=== PATIENT | female | born 1995 | race Caucasian/White ===

== ENCOUNTER 2018-11-18 21:28 | Emergency (ER) | payer OTHER, SELFPAY ==
[2018-11-18 21:35] VITALS: BP 128/84; PULSE 84; RESP 18; TEMP 36.5; O2SAT 99; BMI 27.4
--- NOTE | 2018-11-18 22:02 | ED_ITS ---
HPI - Female Genitourinary General Chief complaint: Urogenital-Female Stated complaint: LEFT SIDED KIDNEY PAIN Time Seen by Provider: 11/18/18 21:29 Source: patient Mode of arrival: ambulatory Limitations: no limitations History of Present Illness HPI Narrative: 21-year-old female nonsmoker, otherwise healthy presents with a chief complaint 2 days of symptoms which started yesterday with dysuria, frequency and urgency. She denies any fever or shaking chills nor nausea or vomiting. She took some azo and cranberry juice in thinks that his many of her urinary symptoms have improved but today she started having left-sided back and flank pain. Her last menstrual period was about 10 days ago, she denies any chance of being . MD Complaint: dysuria Related Data Home Medications Medication Instructions Recorded Confirmed [SHANT] #0 05/31/16 [aczone] #0 06/10/16 adapalene-benzoyl peroxide [Epiduo] 1 brayan TOPICAL #0 05/10/17 Previous Rx's Medication Instructions Recorded cephalexin [Keflex] 500 mg PO QID 7 Days #28 cap 11/18/18 Allergies Allergy/AdvReac Type Severity Reaction Status Date / Time No Known Drug Allergies Allergy Verified 11/18/18 22:43 Review of Systems Constitutional Denies chills, Denies fever(s), Denies lethargy and Denies weakness Eyes Denies change in vision, Denies eye discharge, Denies irritation and Denies loss of vision ENT Ears, Nose, Mouth, and Throat: Denies change in voice, Denies neck pain and Denies sore throat Cardiovascular Denies chest pain, Denies irregular heart rhythm, Denies lightheadedness, Denies palpitations, Denies dyspnea, Denies dyspnea on exertion and Denies orthopnea Respiratory Denies cough, Denies dyspnea, Denies dyspnea on exertion and Denies wheezing Gastrointestinal Gastrointestinal: Denies abdominal pain, Denies change in bowel habits, Denies diarrhea, Denies nausea and Denies vomiting Genitourinary Denies hematuria, Reports dysuria, Reports flank pain, Denies urinary incontinence and Reports urinary urgency Musculoskeletal Denies neck pain Integumentary/Breasts Denies pruritus, Denies erythema, Denies rash and Denies wounds Neurologic Denies confusion, Denies loss of vision and Denies weakness Psychiatric Denies anxiety, Denies confusion, Denies depression, Denies homicidal ideation and Denies suicidal ideation Endocrine Denies palpitations Hematologic/Lymphatic Denies easy bruising Allergic/Immunologic Denies wheezing PFSH Surgical History History of third molar tooth extraction Family History (Updated 05/02/16 @ 00:00 by Conversion Provider) Mother Age: 55 Squamous cell carcinoma Grandfather Age: 90 Melanoma COPD (chronic obstructive pulmonary disease) Heart disease Grandmother Age: 91 Hypertension Stroke Social History Smoking Status: Never smoker Family History Mother Age: 55 Squamous cell carcinoma Grandfather Age: 90 Melanoma COPD (chronic obstructive pulmonary disease) Heart disease Grandmother Age: 91 Hypertension Stroke Social History Smoking Status: Never smoker Exam Narrative Exam Narrative: GEN: AOx3 and in mild distress EYES: Pupils are equal, round, and reactive to light and accommodation. Extraoccular muscles are intact bilaterally. There is no subconjunctival hemorrhage or exudate. CHEST: Lungs are clear to auscultation bilaterally and free of wheezes, rales, or rhonchi. Heart rate is regular rhythm, there are no murmurs, clicks, rubs, or gallops. There is no chest wall tenderness. ABD: Abdomen is soft and nontender. There is no guarding or rebound. Bowel sounds are normal in all 4 quadrants. There is no mass or organomegaly. EXT: Full painless ROM of all extremities with no loss of sensation or strength. SKIN: Warm, pink, and dry. No erythema or rash Initial Vital Signs Initial Vital Signs: Vital Signs Temperature 97.7 F 11/18/18 21:35 Pulse Rate 84 11/18/18 21:35 Respiratory Rate 18 11/18/18 21:35 Blood Pressure 128/84 11/18/18 21:35 Pulse Oximetry 99 11/18/18 21:35 Course Orders Ordered: Discontinued Medications Cefazolin Sodium (Keflex Premix) 1 bottle [facility] [place] Stop: 11/18/18 22:21 Last Admin: 11/18/18 22:53 Dose: 1 bottle Vital Signs - 8 hr 11/18/18 21:35 Temperature 97.7 F Pulse Rate 84 Respiratory Rate 18 Blood Pressure 128/84 Pulse Oximetry 99 MDM - Female Genitourinary Lab Data Lab Results 11/18/18 Range/Units 21:53 Urine RBC 1-5/hpf (0-5/HPF) Urine WBC 1-5/hpf (0-5/HPF) Ur Squamous Epith Cells None seen (0-5/HPF) Urine Bacteria None seen (None) Ur Culture Indicated? Specimen cultured Point of Care Testing Test Results Negative Urine Dip Bedside Urine Glucose Negative Bedside Urine Bilirubin - Negative Bedside Urine Ketone - Negative Urine Specific [place] 1.015 Bedside Urine Occult Blood +++ Bedside Urine pH 6 Bedside Urine Protein - Negative Bedside Urine Urobilinogen +/- 1mg Bedside Urine Nitrite - Negative Bedside Urine Leukocytes + 70 Esterase Discharge Plan Departure Patient Disposition: Home Clinical Impression: Pyelonephritis Discharge Date/Time: 11/18/18 22:30 Interventions: ED Discharge Assessment Last Done: 11/18/18 22:30 Instructions: DI for Kidney Infection Activity Restrictions/Additional Instructions: *You have been diagnosed with [acute urinary tract infection with kidney involvement] *What to do: *Take medications as directed *Follow up with your primary care provider in 2-3 days, call for an appointment. Let them know you were seen in the Emergency Department and that we ask that you be seen in follow up *Return to ER if you should have any new, worsening or concerning symptoms, such as [fever, shaking chills, nausea, vomiting, any other worsening symptoms] Prescriptions: New cephalexin [Keflex] 500 mg capsule 500 mg PO QID 7 Days Qty: 28 RF: 0 No Action [SHANT] Qty: 0 RF: 0 [aczone] Qty: 0 RF: 0 adapalene-benzoyl peroxide [Epiduo] 45 GM gel with pump 1 brayan Topical Qty: 0 RF: 0 Referrals: Kristine Parks MD [Primary Care Provider] -
[2018-11-18 22:28] VITALS: BP 117/58; PULSE 69; RESP 14; TEMP 37.2; O2SAT 99
[2018-11-18 22:31] LABS: Bacteria Urine None Seen
[2018-11-18 22:45] LABS: Culture Indicated Urine Specimen Cultured; RBC Urine 1-5/HPF (0-5/HPF); Squamous Epithelial Cell Urine None Seen (0-5/HPF); WBC Urine 1-5/HPF (0-5/HPF)
[2018-11-18] MEDS: cephALEXin 250 MG PREPACK 1 BOTTLE MISC (22:53)
== END 2018-11-18 22:30 | disposition home or self-care (01) ==
PROVIDERS: Emergency Provider Emergency Medicine; Family Provider Family Medicine; PCP Family Medicine
DX: N12 Tubulo-interstitial nephritis, not specified as acute or chronic (principal)
CPT/HCPCS: 81003; 81015; 81025; 87077; 87086; 87186; 99282; 99283

== ENCOUNTER 2021-04-12 12:08 | Emergency (ER) | payer OTHER, SELFPAY ==
[2021-04-12 12:19] VITALS: BP 127/76; PULSE 91; RESP 18; TEMP 37.1; O2SAT 99; BMI 26.6
--- NOTE | 2021-04-12 12:56 | ED.FEMALEGU ---
HPI - Female Genitourinary <Chris Zavala PA-C - Last Filed: 04/12/21 19:41> General Chief complaint: Urogenital-Female Stated complaint: Thinks UTI Time Seen by Provider: 04/12/21 12:28 History of Present Illness HPI Narrative: Patient is a 25-year-old female presenting to emergency department today for evaluation urinary urgency that began this morning. Patient states that she woke this morning and experienced urinary frequency and urgency, noting that she experienced a burning sensation with urination. Of note, patient was diagnosed with pyelonephritis back in November of 2018. She denies fever, chills, hematuria, abdominal pain, nausea, vomiting, diarrhea, back pain, chest pain, cough, shortness of breath. No other concerns voiced at this time. Related Data Home Medications Medication Instructions Recorded Confirmed [SHANT] #0 05/31/16 [aczone] #0 06/10/16 levonorgestrel (Kyleena) INTRAUTERINE 02/02/19 02/02/19 Previous Rx's Medication Instructions Recorded sulfamethoxazole 800 1 tab PO Q12H #20 tab 04/12/21 mg-trimethoprim 160 mg tablet (Bactrim DS) Allergies Allergy/AdvReac Type Severity Reaction Status Date / Time No Known Drug Allergies Allergy Verified 11/18/18 22:43 Review of Systems <Chris Zavala PA-C - Last Filed: 04/12/21 19:41> Constitutional Constitutional: Denies chills, Denies fatigue, Denies fever(s), Denies frequent falls, Denies lethargy and Denies weakness ENT Ears, Nose, Mouth, and Throat: Denies change in voice, Denies dizziness, Denies neck pain, Denies sore throat and Denies throat swelling Cardiovascular Cardiovascular: Denies chest pain, Denies irregular heart rhythm, Denies lightheadedness, Denies palpitations, Denies dyspnea, Denies dyspnea on exertion and Denies orthopnea Respiratory Respiratory: Denies cough, Denies dyspnea, Denies dyspnea on exertion and Denies wheezing Gastrointestinal Gastrointestinal: Denies abdominal pain, Denies change in bowel habits, Denies diarrhea, Denies nausea and Denies vomiting Genitourinary Genitourinary: Denies hematuria, Denies dysuria (Burning with urination), Denies flank pain, Denies urinary incontinence and Reports urinary urgency Musculoskeletal Musculoskeletal: Denies neck pain Neurologic Neurologic: Denies dizziness, Denies frequent falls and Denies weakness Endocrine Endocrine: Denies fatigue and Denies palpitations Allergic/Immunologic Allergic/Immunologic: Denies urticaria, Denies throat swelling and Denies wheezing Patient History <Chris Zavala PA-C - Last Filed: 04/12/21 19:41> Surgical History History of third molar tooth extraction Family History Mother Age: 57 Squamous cell carcinoma Grandfather Age: 92 Melanoma COPD (chronic obstructive pulmonary disease) Heart disease Grandmother Age: 93 Hypertension Stroke alcohol intake frequency: a few times a month Substance Use Type: does not use Exam <Chris Zavala PA-C - Last Filed: 04/12/21 19:41> Narrative Exam Narrative: GENERAL: 25 year old patient appears stated age. Well-developed patient, in no acute distress. HEAD: Atraumatic. Normocephalic. EYES: Pupils equal round and reactive. Extraocular motions intact. No scleral icterus. No injection or drainage. ENT: Nose without bleeding, purulent drainage. Throat without erythema, tonsillar hypertrophy or exudate. Airway patent. NECK: Trachea midline. Non tender CARDIOVASCULAR: Regular rate and rhythm without murmurs, gallops, or rubs. RESPIRATORY: Clear to auscultation. Breath sounds equal bilaterally. No wheezes, rales, or rhonchi. GASTROINTESTINAL: Abdomen soft, non-tender, nondistended. EXTREMITIES: No edema or joint tenderness. BACK: Nontender without deformity or crepitance. No flank tenderness. NEURO: AOx3. SKIN: No rash or erythema of visible areas Initial Vital Signs Initial Vital Signs: Vital Signs Temperature 98.8 F 04/12/21 12:19 Pulse Rate 91 H 04/12/21 12:19 Respiratory Rate 18 04/12/21 12:19 Blood Pressure 127/76 04/12/21 12:19 Pulse Oximetry 99 04/12/21 12:19 <Krista Gabriel MD - Last Filed: 04/22/21 18:48> Initial Vital Signs Initial Vital Signs: Vital Signs Temperature 98.8 F 04/12/21 12:19 Pulse Rate 91 H 04/12/21 12:19 Respiratory Rate 18 04/12/21 12:19 Blood Pressure 127/76 04/12/21 12:19 Pulse Oximetry 99 04/12/21 12:19 Course <Chris Zavala PA-C - Last Filed: 04/12/21 19:41> Course Course Narrative: Urine dipstick and urine microscopy ordered. Orders Ordered: Discontinued Medications Cyclobenzaprine HCl (Cyclobenzaprine 10 Mg Tablet) 10 mg PO NOW ONE Stop: 04/12/21 13:19 Last Admin: 04/12/21 13:24 Dose: Not Given Documented by: KATERIN Ketorolac Tromethamine (Ketorolac 30 Mg/Ml Vial) 30 mg IM NOW ONE Stop: 04/12/21 13:19 Last Admin: 04/12/21 13:24 Dose: Not Given Documented by: KATERIN Vital Signs Vital signs: Vital Signs - 8 hr 04/12/21 12:19 04/12/21 13:34 Temperature 98.8 F Pulse Rate 91 H 96 H Respiratory Rate 18 18 Blood Pressure 127/76 121/68 Pulse Oximetry 99 99 <Krista Gabriel MD - Last Filed: 04/22/21 18:48> Orders Ordered: Discontinued Medications Cyclobenzaprine HCl (Cyclobenzaprine 10 Mg Tablet) 10 mg PO NOW ONE Stop: 04/12/21 13:19 Last Admin: 04/12/21 13:24 Dose: Not Given Documented by: KATERIN Ketorolac Tromethamine (Ketorolac 30 Mg/Ml Vial) 30 mg IM NOW ONE Stop: 04/12/21 13:19 Last Admin: 04/12/21 13:24 Dose: Not Given Documented by: KATERIN Vital Signs Vital signs: Vital Signs - 8 hr 04/12/21 12:19 04/12/21 13:34 Temperature 98.8 F Pulse Rate 91 H 96 H Respiratory Rate 18 18 Blood Pressure 127/76 121/68 Pulse Oximetry 99 99 MDM - Female Genitourinary <Chris Zavala PA-C - Last Filed: 04/12/21 19:41> Lab Data Labs: Lab Results 04/12/21 Range/Units 12:26 Urine RBC None seen (0-5/HPF) Urine WBC 5-10/hpf H (0-5/HPF) Urine Bacteria None seen (None) Ur Culture Indicated? Specimen cultured Point of Care Testing Test Results Negative Urine Dip Bedside Urine Glucose Negative Bedside Urine Bilirubin - Negative Bedside Urine Ketone - Negative Urine Specific [place] 1.005 Bedside Urine Occult Blood +/- Bedside Urine pH 6.0 Bedside Urine Protein - Negative Bedside Urine Urobilinogen - Negative Bedside Urine Nitrite - Negative Bedside Urine Leukocytes + 70 Esterase MDM Narrative Medical decision making narrative: Patient is a 25-year-old female presenting to emergency department today for evaluation urinary urgency that began this morning. To consider urinary tract infection versus pyelonephritis versus bacterial vaginosis versus nephrolithiasis versus STIs. Overall physical examination and history are reassuring. Patient has remained afebrile in the emergency department and denies any back pain or CVA tenderness. Discussed with patient strict return precautions prior to discharge. <Krista Gabriel MD - Last Filed: 04/22/21 18:48> Lab Data Labs: Lab Results 04/12/21 Range/Units 12:26 Urine RBC None seen (0-5/HPF) Urine WBC 5-10/hpf H (0-5/HPF) Urine Bacteria None seen (None) Ur Culture Indicated? Specimen cultured Point of Care Testing Test Results Negative Urine Dip Bedside Urine Glucose Negative Bedside Urine Bilirubin - Negative Bedside Urine Ketone - Negative Urine Specific [place] 1.005 Bedside Urine Occult Blood +/- Bedside Urine pH 6.0 Bedside Urine Protein - Negative Bedside Urine Urobilinogen - Negative Bedside Urine Nitrite - Negative Bedside Urine Leukocytes + 70 Esterase Discharge Plan Departure Patient Disposition: Home Clinical Impression: Urinary tract infection Instructions: DI for Urinary Tract Infection (UTI) Activity Restrictions/Additional Instructions: *You have been diagnosed with urinary tract infection *What to do: *Please continue to take your regular medications as directed. [X] New medication prescriptions sent to your pharmacy: [facility] [place] - Bactrim [ ] New medication written as a paper prescription [ ] No new medications given *Please follow up with your primary care provider in the next 24-48 hours, call for an appointment. Let them know you were seen in the Emergency Department and that we ask that you be seen in follow up. We will electronically transmit a record of today's note if your PCP is in our system. *If you do not have a primary care provider please contact the [facility] Resource line at [phone]. They will ask some questions about your medical history and help get you set up with a doctor in the community. *Return to Emergency Department if you should have any new, worsening or concerning symptoms, such as fever greater than 101 F, shaking chills, worsening pain with urination, blood in your urine, significant back pain, persistent vomiting or other bothersome symptoms. Prescriptions: New sulfamethoxazole-trimethoprim [Bactrim DS] 800-160 mg tablet 1 tab PO Q12H Qty: 20 0RF No Action [SHANT] Qty: 0 0RF [aczone] Qty: 0 0RF Kyleena 17.5 mcg/24 hrs (5 yrs) 19.5 mg intrauterine device intrauterine 0RF Referrals: Kristine Parks MD [Primary Care Provider] - <Krista Gabriel MD - Last Filed: 04/22/21 18:48> Cosign ED Attending Cosignature Attestation: I was immediately available in the department for consultation throughout this patient's visit. I agree with documentation as above. Krista Gabriel MD
[2021-04-12 13:11] LABS: Bacteria Urine None Seen; Culture Indicated Urine Specimen Cultured; RBC Urine None Seen (0-5/HPF); WBC Urine 5-10/HPF (0-5/HPF)
[2021-04-12 13:34] VITALS: BP 121/68; PULSE 96; RESP 18; O2SAT 99
== END 2021-04-12 13:36 | disposition home or self-care (01) ==
PROVIDERS: Emergency Medicine; Emergency Provider Physician Assistant; Family Provider Family Medicine; PCP Family Medicine
DX: N39.0 Urinary tract infection, site not specified (principal)
CPT/HCPCS: 81003; 81015; 81025; 87077; 87086; 87185; 87186; 99282; 99283